=== PATIENT | female | born 1990 | race Caucasian/White ===

== ENCOUNTER → 2021-10-29 | Outpatient (CLI) | payer OTHER | END | disposition home or self-care (01) | LOC: LAB 17:23 | DX: R53.83 Other fatigue (principal) ==

== ENCOUNTER → 2022-03-02 | Outpatient (CLI) | payer OTHER ==
[~2022-03-02] MED LIST: CEPH500 PO; DIPH50 PO; FOLI1 PO; IBUP800 PO; IRON18 MG PO; ONDA4ODT; OXYACE5T PO; PROC25S PR; PROM25 PO; Percocet 5-3251 EACH PO; Zofran Odt4 MG SL
[2022-03-06 00:09] LABS: CHLAMYDIA TRACHOMATIS, NAA Negative (Negative)
[2022-03-08 15:09] LABS: HPV 16 Negative (Negative); HPV 18 Negative (Negative); HPV OTHER HR TYPES Negative (Negative)
== END | disposition home or self-care (01) ==
LOC: LAB SHORT 17:00 → LAB 17:00
PROVIDERS: Family Medicine
DX: Z01.419 Encounter for gynecological examination (general) (routine) without abnormal findings (principal)
CPT/HCPCS: 87491; 87591; 87624; G0123